=== PATIENT | male | born 2005 | race Caucasian/White ===

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

== ENCOUNTER 2024-06-14 21:52 | Emergency (ER) | payer OTHER, SELFPAY ==
[2024-06-14 21:58] VITALS: BP 145/91; PULSE 94; TEMP 37.1; O2SAT 98; BMI 28.5
--- NOTE | 2024-06-14 22:14 | PC.NURSE ---
hx of migraines. Had a migraine yesterday that is now resolved. He started with vomiting with the migraine that is continued. He also started with diarrhea yesterday that is continued today. 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
[2024-06-14] MEDS: PROMETHAZINE HCL 25 MG/ML VIAL IM (22:49)
[2024-06-14] MEDS: ONDANSETRON 4 MG RAPDIS TABLET SL (22:52)
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
[2024-06-14 23:31] VITALS: BP 133/75; PULSE 81; TEMP 37; O2SAT 100
== END 2024-06-15 00:03 | disposition home or self-care (01) ==
PROVIDERS: Emergency Provider Emergency Medicine; PCP Family Medicine
DX: R11.2 Nausea with vomiting, unspecified (principal)
CPT/HCPCS: 96372; 99284; J2550; Q0162